=== PATIENT | female | born 1965 | race American Indian/Alaskan Native ===

== ENCOUNTER 2017-01-28 21:43 | Emergency (ER) | payer BC | END 2017-01-28 23:20 | disposition left against medical advice (07) | LOC: ED 21:43 | DX: Z53.21 Procedure and treatment not carried out due to patient leaving prior to being seen by health care provider (principal) ==

== ENCOUNTER 2018-11-21 10:22 | Emergency (ER) | payer BC ==
[2018-11-21 10:58] LABS: Basophils % (Auto) 0.6 % (0.0-1.8); Eosinophils % (Auto) 0.4 % (0.0-4.3); Hematocrit 38.3 % (30.3-42.9); Lymphocytes # (Auto) 1.3 K/mm3 (1.2-5.4); Lymphocytes % (Auto) 38.2 % (13.4-35.0); Mean Corpuscular HGB Conc 34 % (30-34); Mean Corpuscular Volume 108 fl (79-97); Monocytes # (Auto) 0.5 K/mm3 (0.0-0.8); Monocytes % (Auto) 14.3 % (0.0-7.3); Platelet Count 143 K/mm3 (140-440); Red Blood Count 3.56 M/mm3 (3.65-5.03); Red Cell Distribution Width 14.1 % (13.2-15.2)
[2018-11-21 11:18] LABS: BUN/Creatinine Ratio 7; Blood Urea Nitrogen 4 mg/dL (7-17); Calcium 8.4 mg/dL (8.4-10.2); Hemolysis Index 16
[2018-11-21] MEDS ORDERED: ZOFRAN ODT PO ONE (11:48)
--- NOTE | 2018-11-21 12:12 | Emergency Department Report ---
HPI - General Chief Complaint: Abdominal Pain Time Seen by Provider: 11/21/18 11:02 - HPI HPI: 53-year-old -[place] female presents to the emergency department with a complaint of nausea, vomiting, diarrhea and some stomach burning discomfort sinc e Saturday, 3 days ago. She has tried some Pepto-Bismol for her symptoms without any relief. She has a remote history of gastric bypass surgery in the 90s. No recent travel or sick contacts at home. She denies any fever, back pain, dysuria, vaginal bleeding or discharge. ED Past Medical Hx - Past Medical History Previous Medical History?: No Additional medical history: Gastric Bypass in 2004 - Surgical History Additional Surgical History: Gastric Bypass 2004 - Social History Smoking Status: Never Smoker Substance Use Type: Alcohol - Medications Home Medications: Home Medications Medication Instructions Recorded Confirmed Last Taken Type Ondansetron [Zofran Odt] 4 mg PO Q8HR PRN #12 tab.rapdis 11/21/18 Unknown Rx ED Review of Systems ROS: Stated complaint: STOMACH BURNING Other details as noted in HPI Comment: All other systems reviewed and negative Constitutional: denies: chills, fever Eyes: denies: eye pain, vision change ENT: denies: ear pain, throat pain Respiratory: denies: cough, shortness of breath Cardiovascular: denies: chest pain, palpitations Gastrointestinal: abdominal pain, nausea, vomiting, diarrhea Genitourinary: denies: dysuria, discharge Musculoskeletal: denies: back pain, arthralgia Skin: denies: rash, lesions Neurological: denies: headache, weakness Physical Exam - Physical Exam Vital Signs: Vital Signs 11/21/18 10:35 Temperature 98.0 F Pulse Rate 99 H Respiratory 18 Rate Blood Pressure 131/83 O2 Sat by Pulse 98 Oximetry Physical Exam: GENERAL: The patient is well-developed well-nourished. HENT: Normocephalic. Atraumatic. Patient has moist mucous membranes. EYES: Extraocular motions are intact. NECK: Supple. Trachea is midline. CHEST/LUNGS: Clear to auscultation. There is no respiratory distress noted. HEART/CARDIOVASCULAR: Regular. There is no tachycardia. There is no murmur. ABDOMEN: Abdomen is soft. Mild upper abdominal tenderness to palpation. No guarding. Patient has normal bowel sounds. There is no abdominal distention. SKIN: Skin is warm and dry. NEURO: The patient is awake, alert, and oriented. The patient is cooperative. The patient has no focal neurologic deficits. The patient has normal speech. MUSCULOSKELETAL: There is no tenderness or deformity. There is no limitation range of motion. There is no evidence of acute injury. ED Course Vital Signs 11/21/18 10:35 Temperature 98.0 F Pulse Rate 99 H Respiratory 18 Rate Blood Pressure 131/83 O2 Sat by Pulse 98 Oximetry ED Medical Decision Making - Lab Data Result diagrams: 11/21/18 10:45 11/21/18 10:45 - Radiology Data Radiology results: image reviewed interpreted by me: Abdominal x-ray shows nonspecific nonobstructive bowel gas - Medical Decision Making This patient presents to the emergency department with a complaint of some nausea, vomiting, diarrhea and some burning sensation in the abdomen. The labs have been unremarkable. Vital signs stable throughout her ED course. Abdominal x-ray shows just nonspecific nonobstructive bowel gas. Patient was given a dose of Zofran and upon reevaluation she is feeling greatly improved. She is able to pass an oral challenge. Patient has good follow-up with primary care. She has been discharged home with a prescription for Zofran ODT. She will return to the ER with any worsening of her symptoms or any acute distress. - Differential Diagnosis food poisoning, gastritis, gastroenteritis, colitis Critical Care Time: No Critical care attestation.: If time is entered above; I have spent that time in minutes in the direct care of this critically ill patient, excluding procedure time. ED Disposition Clinical Impression: Nausea & vomiting Qualifiers: Vomiting type: unspecified Vomiting Intractability: non-intractable Qualified Code(s): R11.2 - Nausea with vomiting, unspecified Diarrhea Qualifiers: Diarrhea type: unspecified type Qualified Code(s): R19.7 - Diarrhea, unspecified Abdominal pain Qualifiers: Abdominal location: generalized Qualified Code(s): R10.84 - Generalized abdominal pain Disposition: -01 TO HOME OR SELFCARE Is pt being admited?: No Condition: Stable Instructions: Acute Nausea and Vomiting (ED), Acute Diarrhea (ED), Abdominal Pain (ED) Additional Instructions: Please follow-up with your primary care physician in the next few days. Return to the emergency Department with any worsening of your symptoms or any acute distress. Prescriptions: Ondansetron [Zofran Odt] 4 mg PO Q8HR PRN #12 tab.rapdis PRN Reason: Nausea Referrals: Primary Care Provider, Your [Other] - 2-3 Days Forms: Work/School Release Form(ED) Time of Disposition: 13:42
--- NOTE | 2018-11-21 12:29 | XRay Report ---
ABDOMEN 2 VIEW(S) INDICATION / CLINICAL INFORMATION: abd pain. COMPARISON: None available. FINDINGS: TUBES / LINES: None. BOWEL GAS PATTERN/EXTRALUMINAL GAS: No significant abnormality. No free air. Surgical clips and sutur es projecting over the left upper quadrant, possibly from previous gastric bypass. ADDITIONAL FINDINGS: Calcified uterine fibroids projecting over the pelvis. IMPRESSION: 1. No acute findings. Signer Name: Pj Moe MD Signed: 11/21/2018 12:24 PM Workstation Name: [id number]
[2018-11-21] MEDS ORDERED: LIDOCAINE VISCOUS 2% PO ONE (12:35)
[2018-11-21] MEDS ORDERED: ALUM-MAG HYDROX-SIMETH 200-200-20MG/5ML PO ONE (12:35)
[2018-11-21 14:08] VITALS: BP 136/78
== END 2018-11-21 14:07 | disposition home or self-care (01) ==
LOC: ED 10:22
DX: R10.84 Generalized abdominal pain (principal); R11.2 Nausea with vomiting, unspecified; R19.7 Diarrhea, unspecified; Z98.890 Other specified postprocedural states
CPT/HCPCS: 36415; 74019; 80048; 83690; 85025; Q0162

== ENCOUNTER 2018-11-24 15:40 | Inpatient (IN) | payer BC ==
--- NOTE | 2018-11-24 16:08 | Event Note ---
ED Screening Note ED Screening Note: pt has not been able to urinate since 11/20/18 states he has suprapubic abd pain N/V/D that began 11/20/18 no hematochezia, no hematemesis states has not been able to urinate previously and was admitted to the hospital two months ago pt is not on dialysis, states he sees a kidney doctor PMHx DM, GERD, HEP B and C This initial assessment/diagnostic orders/clinical plan/treatment(s) is/are subject to change based on patients health status, clinical progression and re- assessment by fellow clinical providers in the ED. Further treatment and workup at subsequent clinical providers discretion. Patient/guardian urged not to elope from the ED as their condition may be serious if not clinically assessed and managed. Initial orders include: labs, EKG
--- NOTE | 2018-11-24 16:18 | Event Note ---
ED Screening Note ED Screening Note: presents for N/V/D that began a week ago was seen in the ED and given zofran states not feeling better states she has periumbilical abd pain described as a burning no urinary sx no PMHx no daily meds no allergies to meds non smoker +drinker This initial assessment/diagnostic orders/clinical plan/treatment(s) is/are subject to change based on patients health status, clinical progression and re- assessment by fellow clinical providers in the ED. Further treatment and workup at subsequent clinical providers discretion. Patient/guardian urged not to elope from the ED as their condition may be serious if not clinically assessed and managed. Initial orders include: labs, UA
[2018-11-24 16:49] LABS: Bilirubin,Urine NEG (Negative); Blood,Urine NEG (Negative); Color,Urine Yellow (Yellow); Hyaline Casts,Urine 1 /LPF; Mucus,Urine FEW /HPF; Protein,Urine <15 mg/dL mg/dL (Negative)
[2018-11-24 17:07] LABS: Eosinophils % (Auto) 0.5 % (0.0-4.3); Hematocrit 38.4 % (30.3-42.9); Lymphocytes # (Auto) 1.6 K/mm3 (1.2-5.4); Mean Corpuscular HGB Conc 34 % (30-34); Mean Corpuscular Volume 107 fl (79-97); Monocytes # (Auto) 0.4 K/mm3 (0.0-0.8); Monocytes % (Auto) 12.4 % (0.0-7.3); Platelet Count 132 K/mm3 (140-440); Red Blood Count 3.59 M/mm3 (3.65-5.03); Red Cell Distribution Width 13.7 % (13.2-15.2)
[2018-11-24 17:34] LABS: Alanine Aminotransferase 110 units/L (7-56); Albumin 3.2 g/dL (3.9-5); BUN/Creatinine Ratio 8; Blood Urea Nitrogen 4 mg/dL (7-17); Calcium 8.7 mg/dL (8.4-10.2); Hemolysis Index 4
[2018-11-24] MEDS ORDERED: MORPHINE IV ONE (18:32)
[2018-11-24] MEDS ORDERED: ZOFRAN IV ONE (18:32)
[2018-11-24] MEDS ORDERED: NACL 0.9% 1000 ML 1,000 ML IV ONE (18:32)
--- NOTE | 2018-11-24 20:19 | Cat Scan Report ---
CT abdomen pelvis w con INDICATION: severe abd pain,elev t.bilirubin. TECHNIQUE: All CT scans at this location are performed using the following dose modulation technique: Automated exposure control. CONTRAST: Omnipaque 300, 100 cc IV injection. COMPARISON: None available. CT abdomen: Patchy consolidation is noted at the right lung base dependently. Evaluation of the parenchymal organs demonstrates mild fatty infiltration of the liver. The remaining parenchymal organs are unremarkable. Negative for abdominal mass, fluid collection or inflammation. The bowel is not dilated or thickened. Status post previous gastric bypass. Mild gallbladder distention is noted without associated wall thi ckening or adjacent inflammation. Negative for biliary dilatation. CT PELVIS: Negative for pelvic mass, fluid or inflammation. Calcified uterine fibroids are noted. IMPRESSION: 1. Right basilar pneumonia. 2. Mild gallbladder distention. Signer Name: Fredrick Tapia MD Signed: 11/24/2018 8:15 PM Workstation Name: [id number]
[2018-11-24] MEDS ORDERED: LEVAQUIN 750MG/150ML 750 MG/150 ML BAG IV ONE (21:00)
--- NOTE | 2018-11-24 21:13 | Emergency Department Report ---
ED Abdominal Pain HPI - General Chief Complaint: Abdominal Pain Stated Complaint: DEHYDRATED/NAUSEA/VOMITING/DIARRHEA Time Seen by Provider: 11/24/18 16:05 Source: patient Mode of arrival: Ambulatory Limitations: No Limitations - History of Present Illness Initial Comments: This is a 53-year-old -[place] female who presents to the ED with right upper quadrant pain, nausea, vomiting, coughing, productive of white sputum. Symptoms have been going on intermittently for the past week, and she rates them as severe in severity. She was seen in ED for similar symptoms about a week ago, discharged with Zofran, which did not help. MD Complaint: abdominal pain -: Gradual Location: epigastric Radiation: none Migration to: periumbilical, RUQ Severity scale (0 -10): 7 Quality: cramping Consistency: intermittent Improves With: nothing Worsens With: eating, vomiting Associated Symptoms: nausea, vomiting - Related Data Previous Rx's Medication Instructions Recorded Last Taken Type Ondansetron [Zofran Odt] 4 mg PO Q8HR PRN #12 tab.rapdis 11/21/18 Unknown Rx Allergies Allergy/AdvReac Type Severity Reaction Status Date / Time No Known Allergies Allergy Verified 11/21/18 13:02 ED Review of Systems ROS: Stated complaint: DEHYDRATED/NAUSEA/VOMITING/DIARRHEA Other details as noted in HPI Comment: All other systems reviewed and negative Respiratory: cough Cardiovascular: chest pain, palpitations ED Past Medical Hx - Past Medical History Previous Medical History?: Yes Additional medical history: Gastric Bypass in 2004 - Surgical History Past Surgical History?: Yes Additional Surgical History: Gastric Bypass 2004 - Social History Smoking Status: Never Smoker Substance Use Type: Alcohol - Medications Home Medications: Home Medications Medication Instructions Recorded Confirmed Last Taken Type Ondansetron [Zofran Odt] 4 mg PO Q8HR PRN #12 tab.rapdis 11/21/18 Unknown Rx ED Physical Exam - General Limitations: No Limitations General appearance: alert - Head Head exam: Present: atraumatic, normocephalic - Eye Eye exam: Present: normal appearance - ENT ENT exam: Present: normal exam, normal orophraynx - Respiratory Respiratory exam: Present: decreased breath sounds - Cardiovascular Cardiovascular Exam: Present: regular rate, normal rhythm - GI/Abdominal GI/Abdominal exam: Present: soft ED Course Vital Signs 11/24/18 11/24/18 16:16 18:55 Temperature 99 F Pulse Rate 102 H Respiratory 18 22 Rate Blood Pressure 122/89 O2 Sat by Pulse 96 Oximetry ED Medical Decision Making - Lab Data Result diagrams: 11/24/18 16:49 11/24/18 16:49 - Medical Decision Making in er received morphine 2mg iv, zofran, ct showed right basilar pna, levaquin, iv, blood cx, admit to hosp. - Differential Diagnosis pneumonia,cholecystitis,appendicitis Critical care attestation.: If time is entered above; I have spent that time in minutes in the direct care of this critically ill patient, excluding procedure time. ED Disposition Clinical Impression: Elevated LFTs Right lower lobe pneumonia Qualifiers: Pneumonia type: aspiration pneumonia Aspiration pneumonia type: unspecified Qualified Code(s): J69.0 - Pneumonitis due to inhalation of food and vomit Disposition: OP ADMIT IP TO THIS HOSP Is pt being admited?: Yes Does the pt Need Aspirin: No Condition: Stable Instructions: Abdominal Pain (ED), Bacterial Pneumonia (ED) Referrals: ERENDIRA ARAGON MD [Primary Care Provider] - 3-5 Days
[2018-11-24] MEDS ORDERED: DILAUDID IV PRN (21:49)
[2018-11-24] MEDS ORDERED: RESTORIL PO PRN (21:50)
[2018-11-24] MEDS ORDERED: MORPHINE IV PRN (21:53)
--- NOTE | 2018-11-24 22:29 | XRay Report ---
CHEST 1 VIEW INDICATION: cough COMPARISON: None FINDINGS: Support devices: None Heart: Normal Lungs/Pleura: No acute pulmonary or pleural findings. IMPRESSION: 1. Negative study Signer Name: Aguilar Alvarado MD Signed: 11/24/2018 10:25 PM Workstation Name: [id number]
[2018-11-24] MEDS: ZOFRAN IV PRN (23:49)
[2018-11-24] MEDS ORDERED: ZOFRAN ONE (23:49)
[2018-11-24] MEDS ORDERED: MORPHINE ONE (23:50)
--- NOTE | 2018-11-25 05:34 | History and Physical Report ---
CHIEF COMPLAINT: Abdominal pain. HISTORY OF PRESENT ILLNESS: The patient is a 53-year-old female who was having abdominal pain going on for 1 week. The patient was seen in the Emergency Room because of the pain and evaluated. She described the pain as severe in nature. She was discharged home when she came in about 1 week ago with Zofran for the same symptoms, but the pain according to the patient persisted. There is no history of fever and there is no history of chills and the patient said that the pain is associated with nausea and vomiting and worse with eating. Pain is located in the periumbilical area and right upper quadrant area. The patient denies history of shortness breath but complains of cough. The patient came back to the Emergency Room and then was evaluated and had a CAT scan of abdomen and pelvis done that shows right lower lobe pneumonia. PAST MEDICAL HISTORY: Pertinent for gastric bypass surgery in the past. FAMILY HISTORY: Reviewed and noncontributory. SOCIAL HISTORY: The patient does not smoke cigarettes, drinks alcohol, and does not use illicit drugs. MEDICATIONS: The patient is on Zofran 4 mg every 8 hours as needed for nausea and vomiting. ALLERGIES: There are no known drug allergies. REVIEW OF SYSTEMS: CONSTITUTIONAL: There is no fever, no chills or diaphoresis. HEENT: There is no headache or sore throat. CARDIOVASCULAR: There is no chest pain or orthopnea. RESPIRATORY SYSTEM: There is no shortness of breath or cough. GASTROINTESTINAL SYSTEM: Abdominal pain present. Nausea and vomiting present. No diarrhea, no constipation. NEUROLOGICAL SYSTEM: There is no numbness, no dizziness, no altered mental status. MUSCULOSKELETAL SYSTEM: There is no joint pain or swelling. DERMATOLOGICAL SYSTEM: There is no skin rash or itching. GENITOURINARY SYSTEM: There is no dysuria, hematuria, or flank pain. Rest of system review is normal. PHYSICAL EXAMINATION: GENERAL: At the time of exam, the patient was found to be alert, oriented x 3 and not in acute distress. VITAL SIGNS: At the initial time of presentation show temperature of 99 degrees Fahrenheit, pulse of 102, respirations 18, blood pressure 122/89, O2 sat of 96% on room air. HEENT: Showed pupils to be equal, round, reactive to light and accommodating. Extraocular muscles are intact. NECK: Neck is supple with no JVD or carotid bruit. CARDIOVASCULAR SYSTEM: Showed normal first and second heart sounds with no gallops or murmurs. RESPIRATORY SYSTEM: Showed good air entry on both sides of the lungs with scattered crackles in the right lower lung field area. There is no use of accessory respiratory muscle. GASTROINTESTINAL SYSTEM: Shows abdomen to be full, soft, nontender with no organomegaly or rigidity. NEUROLOGIC: Shows no focal deficit. MUSCULOSKELETAL SYSTEM: Shows no joint swelling or tenderness. DERMATOLOGICAL SYSTEM: Shows no skin rash. GENITOURINARY SYSTEM: Showing no costovertebral angle tenderness. PERTINENT LABORATORY DATA AND IMAGING STUDIES: The patient had a CT of the abdomen and pelvis done with contrast that shows right basilar pneumonia. Mild gallbladder distention. Also the patient had a chest x-ray done that was unremarkable. Lab results, the patient had CBC done that has low white count of 3.6, normal hemoglobin, normal hematocrit with CBC differential showing elevated lymphocyte count of 45% with elevated monocyte count of 12.4%. The patient's chemistry show elevated bilirubin level of 0.5, with elevated liver transaminases showing high AST of 331, high ALT of 110, with high alkaline phosphatase of 444, low albumin level of 3.2. The patient's urinalysis was unremarkable. DIAGNOSES: 1. Right lower lobe pneumonia. 2. Transaminitis. PLAN OF CARE: 1. The patient will be admitted to medical floor. 2. The patient will be on IV Rocephin 1 gram daily and IV Zithromax 500 mg daily. 3. The patient will be on IV morphine 2 mg every 4 hours as needed for pain and IV Zofran 4 mg every 8 hours as needed for nausea and vomiting. 4. The patient will have liver function test done this morning, 11/25/2018, and will be on Tylenol 650 mg by mouth every 4 hours for fever and headache. 5. The patient will have hepatitis panel done to rule out hepatitis. 6. The patient's diet will be regular diet. 7. The patient will be on temazepam 15 mg at bedtime for insomnia. 8. DVT prophylaxis will be through heparin 5000 units subcutaneous q.12 hours. JOB# [id number] OCN/NTS MTDD
[2018-11-25 06:29] LABS: Albumin 3.2 g/dL (3.9-5); Bilirubin,Direct 0.8 mg/dL (0-0.2)
[2018-11-25 06:42] LABS: Hepatitis B Surface Antigen Non-Reactive (Negative); Hepatitis C Virus Antibody Non-Reactive (NonReactive)
[2018-11-25] MEDS: ZOFRAN IV PRN ×3 (08:51→22:43)
[2018-11-25] MEDS ORDERED: ZITHROMAX 500 MG in NACL 0.9% 250ML 250 ML IV SCH (10:00)
[2018-11-25] MEDS: HEPARIN SUB-Q SCH ×2 (10:38→22:33)
[2018-11-25] MEDS: ROCEPHIN/NS 1 GM/50 ML 1 GM/50 ML BAG IV SCH (10:38)
[2018-11-25] MEDS: TYLENOL PO PRN ×2 (11:02→22:43)
[2018-11-25] MEDS: NACL 0.9% 1000 ML 1,000 ML IV SCH (15:54)
--- NOTE | 2018-11-25 17:31 | Progress Note ---
Assessment and Plan - Patient Problems (1) Elevated LFTs Current Visit: Yes Status: Acute Plan to address problem: most likely secondary to to pneumonia and nausea and vomiting has started to respond to iv fluids (2) Right lower lobe pneumonia Current Visit: Yes Status: Acute Qualifiers: Pneumonia type: aspiration pneumonia Aspiration pneumonia type: unspecified Qualified Code(s): J69.0 - Pneumonitis due to inhalation of food and vomit Plan to address problem: will dc azithromycin seems to have had allergy. will keep rocphin did not have any problems seems to be resoponding to rocephin alone anyway lower fever curve and symptoms. (3) Chest pain Current Visit: No Status: Resolved Plan to address problem: secondary to pnumonia (4) Nausea & vomiting Current Visit: No Status: Acute Plan to address problem: may be secndarry to infection will start iv fluids and clear liquid diet with zofran History Interval history: pt today fels better still had problem with nausea. Family at bedside confrimed dxc of pneumonia state understands. sbo is better could not keep food down while in room pt had vominting with zithromycin. no fever Hospitalist Physical - Constitutional Vitals: Temp Pulse Resp BP Pulse Ox 98.0 F 132 H 22 147/97 98 11/25/18 16:17 11/25/18 16:17 11/25/18 16:17 11/25/18 16:17 11/25/18 16:17 General appearance: Present: no acute distress. Absent: disheveled, malodorous - EENT Eyes: Present: PERRL, EOM intact ENT: hearing intact, clear oral mucosa, dentition normal - Neck Neck: Present: supple, normal ROM - Respiratory Respiratory effort: normal Respiratory: right: diminished, rhonchi - Cardiovascular Rhythm: regular - Extremities Extremities: no ischemia, pulses intact, pulses symmetrical, No edema, normal temperature, normal color, Full ROM Peripheral Pulses: within normal limits - Abdominal General gastrointestinal: soft, non-tender, non-distended, normal bowel sounds, no hepatomegaly, no splenomegaly, no mass - Integumentary Integumentary: Present: clear, warm, dry - Psychiatric Psychiatric: appropriate mood/affect, intact judgment & insight, memory intact - Neurologic Neurologic: CNII-XII intact, no focal deficits, moves all extremities Results - Labs CBC & Chem 7: 11/24/18 16:49 11/24/18 16:49 Labs: Laboratory Last Values WBC 3.6 K/mm3 (4.5-11.0) L 11/24/18 16:49 RBC 3.59 M/mm3 (3.65-5.03) L 11/24/18 16:49 Hgb 13.0 gm/dl (10.1-14.3) 11/24/18 16:49 Hct 38.4 % (30.3-42.9) 11/24/18 16:49 MCV 107 fl (79-97) H 11/24/18 16:49 MCH 36 pg (28-32) H 11/24/18 16:49 MCHC 34 % (30-34) 11/24/18 16:49 RDW 13.7 % (13.2-15.2) 11/24/18 16:49 Plt Count 132 K/mm3 (140-440) L 11/24/18 16:49 Lymph % (Auto) 45.0 % (13.4-35.0) H 11/24/18 16:49 [place] % (Auto) 12.4 % (0.0-7.3) H 11/24/18 16:49 Eos % (Auto) 0.5 % (0.0-4.3) 11/24/18 16:49 Baso % (Auto) 1.0 % (0.0-1.8) 11/24/18 16:49 Lymph # 1.6 K/mm3 (1.2-5.4) 11/24/18 16:49 [place] # 0.4 K/mm3 (0.0-0.8) 11/24/18 16:49 Eos # 0.0 K/mm3 (0.0-0.4) 11/24/18 16:49 Baso # 0.0 K/mm3 (0.0-0.1) 11/24/18 16:49 Seg Neutrophils % 41.1 % (40.0-70.0) 11/24/18 16:49 Seg Neutrophils # 1.5 K/mm3 (1.8-7.7) L 11/24/18 16:49 Sodium 137 mmol/L (137-145) 11/24/18 16:49 Potassium 3.9 mmol/L (3.6-5.0) 11/24/18 16:49 Chloride 100.0 mmol/L (98-107) 11/24/18 16:49 Carbon Dioxide 25 mmol/L (22-30) 11/24/18 16:49 16 mmol/L 11/24/18 16:49 BUN 4 mg/dL (7-17) L 11/24/18 16:49 0.5 mg/dL (0.7-1.2) L 11/24/18 16:49 Estimated GFR > 60 ml/min 11/24/18 16:49 8 % 11/24/18 16:49 Glucose 104 mg/dL (65-100) H 11/24/18 16:49 Calcium 8.7 mg/dL (8.4-10.2) 11/24/18 16:49 1.60 mg/dL (0.1-1.2) H 11/25/18 05:13 0.8 mg/dL (0-0.2) H 11/25/18 05:13 0.8 mg/dL 11/25/18 05:13 AST 230 units/L (5-40) H 11/25/18 05:13 ALT 93 units/L (7-56) H 11/25/18 05:13 395 units/L (35-129) H 11/25/18 05:13 6.5 g/dL (6.3-8.2) 11/25/18 05:13 3.2 g/dL (3.9-5) L 11/25/18 05:13 1.0 % 11/25/18 05:13 11 units/L (13-60) L 11/24/18 16:49 Yellow (Yellow) 11/24/18 16:35 Clear (Clear) 11/24/18 16:35 5.0 (5.0-7.0) 11/24/18 16:35 Ur Specific [place] 1.011 (1.003-1.030) 11/24/18 16:35 <15 mg/dl mg/dL (Negative) 11/24/18 16:35 Neg mg/dL (Negative) 11/24/18 16:35 Neg mg/dL (Negative) 11/24/18 16:35 Neg (Negative) 11/24/18 16:35 Neg (Negative) 11/24/18 16:35 Neg (Negative) 11/24/18 16:35 2.0 mg/dL (<2.0) 11/24/18 16:35 Ur Leukocyte Esterase Neg (Negative) 11/24/18 16:35 1.0 /HPF (0.0-6.0) 11/24/18 16:35 3.0 /HPF (0.0-6.0) 11/24/18 16:35 U Epithel Cells (Auto) 1.0 /HPF (0-13.0) 11/24/18 16:35 Hyaline Casts 1 /LPF 11/24/18 16:35 Few /HPF 11/24/18 16:35 Hepatitis A IgM Ab Non-reactive (NonReactive) 11/25/18 05:13 Hep Bs Antigen Non-reactive (Negative) 11/25/18 05:13 Hep B Core IgM Ab Non-reactive (NonReactive) 11/25/18 05:13 Non-reactive (NonReactive) 11/25/18 05:13 - Imaging and Cardiology Chest x-ray: image reviewed Active Medications - Current Medications Current Medications: Generic Name Dose Route Start Last Admin Trade Name Freq PRN Reason Stop Dose Admin Acetaminophen 650 mg 11/24/18 21:50 11/25/18 11:02 Tylenol PO 650 mg Q4H PRN Administration Pain, Mild (1-3) Heparin Sodium (Porcine) 5,000 unit 11/25/18 10:00 11/25/18 10:38 Heparin SUB-Q 5,000 unit Q12HR OWEN Administration Ceftriaxone Sodium 1 gm in 50 mls @ 100 mls/hr 11/25/18 10:00 11/25/18 10:38 Rocephin/Ns 1 Gm/50 Ml IV 100 mls/hr Q24HR OWEN Administration Protocol Sodium Chloride 1,000 mls @ 100 mls/hr 11/25/18 15:00 11/25/18 15:54 Nacl 0.9% 1000 Ml IV 100 mls/hr DIRECT OWEN Administration Morphine Sulfate 2 mg 11/24/18 21:53 11/24/18 23:49 Morphine IV 2 mg Q4H PRN Administration Pain, Moderate (4-6) Ondansetron HCl 4 mg 11/25/18 14:00 11/25/18 15:54 Zofran IV 4 mg Q6H PRN Administration Nausea And Vomiting Temazepam 15 mg 11/24/18 21:50 Restoril PO QHS PRN Sleep Nutrition/Malnutrition Assess - Dietary Evaluation Nutrition/Malnutrition Findings: Nutrition Notes Start: 11/25/18 14:45 Freq: Status: Active Protocol: Document 11/25/18 14:52 RM (Rec: 11/25/18 15:06 RM [id number]) Nutrition Notes Need for Assessment generated from: MST Initial or Follow up Assessment Other Pertinent Diagnosis Abdominal pain X 1 week, Hx gastric bypass, R lower lobe pneu Current Diet Clear liquid Labs/Tests Reviewed Pertinent Medications Reviewed Height 5 ft 8 in Weight 61 kg Usual Body Weight 63.64 kg [place] Body Weight (kg) 63.63 BMI 20.4 Weight change and time frame 4.15% wt loss X 3 months Subjective/Other Information Screened for malnutrition. Regular diet in place earlier today. Clear liquid diet ordered later today. Pt stated that [employer] her appetite was poor and that she has not eaten anything since . Stated that she normally she eats 2 meals daily. Stated that her appetite is poor now and that she has only been drinking liquids d/t gagging and fear of vomiting solid food. Stated UBW was 140 lbs a few months ago. Noted slight temporal wasting. Burn Absent Trauma Absent Minimum of two criteria Yes Energy Intake (severe) < or equal to 50% Estimated Energy Requirement > or equal to 5 days Muscle Mass Mild Depletion (non-severe) #1 Nutrition Diagnosis Malnutrition Etiology abdominal pain As Evidenced by Signs and Symptoms temporal wasting, pt statement that she has not eaten anything since Is patient on ventilator? No Is Patient Ambulatory and/or Out of Bed Yes REE-([place]-ambulatory/OOB) [ 1636.050 NUTR.MSJOOB] Calculation Used for Recommendations [facility] Additional Notes Protein Needs: 73-92g (1.2-1. 5g/kg) Fluid Needs: 1 ml/kcal Nutrition Intervention Change Diet Order: Advance diet when medically able Add Supplement/Snack (indicate name/kcal Ensure Clear 1 daily /protein ) Provides kCal: 240 Provides Protein (gm) 8 Goal #1 Diet advancement Anticipated Discharge Needs: Unable to determine at this time Follow-Up By: 11/27/18 Additional Comments Follow for PO and ONS intakes
[2018-11-26] MEDS: NACL 0.9% 1000 ML 1,000 ML IV SCH ×3 (00:52→18:56)
[2018-11-26 08:28] LABS: Basophils % (Auto) 0.5 % (0.0-1.8); Eosinophils % (Auto) 0.1 % (0.0-4.3); Hematocrit 34.7 % (30.3-42.9); Lymphocytes # (Auto) 0.9 K/mm3 (1.2-5.4); Mean Corpuscular HGB Conc 35 % (30-34); Mean Corpuscular Volume 106 fl (79-97); Monocytes # (Auto) 0.4 K/mm3 (0.0-0.8); Monocytes % (Auto) 13.3 % (0.0-7.3); Platelet Count 100 K/mm3 (140-440); Red Blood Count 3.27 M/mm3 (3.65-5.03); Red Cell Distribution Width 13.6 % (13.2-15.2)
[2018-11-26 08:43] LABS: BUN/Creatinine Ratio 4; Blood Urea Nitrogen 2 mg/dL (7-17); Calcium 8.6 mg/dL (8.4-10.2); Hemolysis Index 15
[2018-11-26] MEDS: ROCEPHIN/NS 1 GM/50 ML 1 GM/50 ML BAG IV SCH (10:10)
[2018-11-26] MEDS: HEPARIN SUB-Q SCH ×2 (10:11→22:36)
--- NOTE | 2018-11-26 18:31 | Progress Note ---
Assessment and Plan - Patient Problems (1) Elevated LFTs Current Visit: Yes Status: Acute Plan to address problem: Patient LFTs are resolving. Down trending. Could've been secondary to previous retained stone. Mild gallbladder elevation. We'll follow-up LFTs on outpatient. (2) Right lower lobe pneumonia Current Visit: Yes Status: Acute Qualifiers: Pneumonia type: aspiration pneumonia Aspiration pneumonia type: unspecified Qualified Code(s): J69.0 - Pneumonitis due to inhalation of food and vomit Plan to address problem: will dc azithromycin seems to have had allergy. will keep rocphin did not have any problems seems to be resoponding to rocephin alone anyway lower fever curve and symptoms. (3) Chest pain Current Visit: No Status: Resolved Plan to address problem: No further evidence of chest pain or abdominal pain. Was secondary to pneumonia. Patient feels much better workup negative. (4) Nausea & vomiting Current Visit: No Status: Acute Plan to address problem: may be secndarry to infection will start iv fluids and clear liquid diet with zofran (5) Moderate protein malnutrition Current Visit: Yes Status: Acute Plan to address problem: Patient appears to have moderate protein deficiency malnutrition. Patient has had a decrease by mouth intake for some time several weeks. Most likely secondary to her pneumonia. And abdominal pain. May have been mild gallbladder obstruction as well. Patient has no evidence of sepsis at all. Despite leukopenia History Interval history: Patient feels much better today. Able to keep food down. Patient's no vomiting states she is hungry stable to advance diet. No fever no leukocytosis patient's energy has improved and is stronger. Anticipating discharge in a.m. Hospitalist Physical - Constitutional Vitals: Temp Pulse Resp BP Pulse Ox 99.0 F 75 20 126/78 99 11/26/18 16:50 11/26/18 16:50 11/26/18 16:50 11/26/18 16:50 11/26/18 16:50 General appearance: Present: no acute distress. Absent: disheveled, malodorous - EENT Eyes: Present: PERRL, EOM intact ENT: hearing intact, clear oral mucosa, dentition normal - Neck Neck: Present: supple, normal ROM - Respiratory Respiratory effort: normal Respiratory: right: rales, rhonchi - Cardiovascular Rhythm: regular - Extremities Extremities: no ischemia, pulses intact, pulses symmetrical, No edema, normal temperature, normal color Peripheral Pulses: within normal limits - Abdominal General gastrointestinal: soft, non-tender, non-distended, normal bowel sounds, no distended, no rigid - Integumentary Integumentary: Present: clear, warm, dry - Psychiatric Psychiatric: appropriate mood/affect, intact judgment & insight, memory intact - Neurologic Neurologic: CNII-XII intact, focal deficits, moves all extremities Results - Labs CBC & Chem 7: 11/26/18 07:53 11/26/18 07:53 Labs: Laboratory Last Values WBC 2.8 K/mm3 (4.5-11.0) L 11/26/18 07:53 RBC 3.27 M/mm3 (3.65-5.03) L 11/26/18 07:53 Hgb 12.0 gm/dl (10.1-14.3) 11/26/18 07:53 Hct 34.7 % (30.3-42.9) 11/26/18 07:53 MCV 106 fl (79-97) H 11/26/18 07:53 MCH 37 pg (28-32) H 11/26/18 07:53 MCHC 35 % (30-34) H 11/26/18 07:53 RDW 13.6 % (13.2-15.2) 11/26/18 07:53 Plt Count 100 K/mm3 (140-440) L 11/26/18 07:53 Lymph % (Auto) 32.0 % (13.4-35.0) 11/26/18 07:53 [place] % (Auto) 13.3 % (0.0-7.3) H 11/26/18 07:53 Eos % (Auto) 0.1 % (0.0-4.3) 11/26/18 07:53 Baso % (Auto) 0.5 % (0.0-1.8) 11/26/18 07:53 Lymph # 0.9 K/mm3 (1.2-5.4) L 11/26/18 07:53 [place] # 0.4 K/mm3 (0.0-0.8) 11/26/18 07:53 Eos # 0.0 K/mm3 (0.0-0.4) 11/26/18 07:53 Baso # 0.0 K/mm3 (0.0-0.1) 11/26/18 07:53 Seg Neutrophils % 54.1 % (40.0-70.0) 11/26/18 07:53 Seg Neutrophils # 1.5 K/mm3 (1.8-7.7) L 11/26/18 07:53 Sodium 140 mmol/L (137-145) 11/26/18 07:53 Potassium 3.5 mmol/L (3.6-5.0) L 11/26/18 07:53 Chloride 104.1 mmol/L (98-107) 11/26/18 07:53 Carbon Dioxide 27 mmol/L (22-30) 11/26/18 07:53 12 mmol/L 11/26/18 07:53 BUN 2 mg/dL (7-17) L 11/26/18 07:53 0.5 mg/dL (0.7-1.2) L 11/26/18 07:53 Estimated GFR > 60 ml/min 11/26/18 07:53 4 % 11/26/18 07:53 Glucose 77 mg/dL (65-100) 11/26/18 07:53 Calcium 8.6 mg/dL (8.4-10.2) 11/26/18 07:53 1.60 mg/dL (0.1-1.2) H 11/25/18 05:13 0.8 mg/dL (0-0.2) H 11/25/18 05:13 0.8 mg/dL 11/25/18 05:13 AST 230 units/L (5-40) H 11/25/18 05:13 ALT 93 units/L (7-56) H 11/25/18 05:13 395 units/L (35-129) H 11/25/18 05:13 6.5 g/dL (6.3-8.2) 11/25/18 05:13 3.2 g/dL (3.9-5) L 11/25/18 05:13 1.0 % 11/25/18 05:13 11 units/L (13-60) L 11/24/18 16:49 Yellow (Yellow) 11/24/18 16:35 Clear (Clear) 11/24/18 16:35 5.0 (5.0-7.0) 11/24/18 16:35 Ur Specific [place] 1.011 (1.003-1.030) 11/24/18 16:35 <15 mg/dl mg/dL (Negative) 11/24/18 16:35 Neg mg/dL (Negative) 11/24/18 16:35 Neg mg/dL (Negative) 11/24/18 16:35 Neg (Negative) 11/24/18 16:35 Neg (Negative) 11/24/18 16:35 Neg (Negative) 11/24/18 16:35 2.0 mg/dL (<2.0) 11/24/18 16:35 Ur Leukocyte Esterase Neg (Negative) 11/24/18 16:35 1.0 /HPF (0.0-6.0) 11/24/18 16:35 3.0 /HPF (0.0-6.0) 11/24/18 16:35 U Epithel Cells (Auto) 1.0 /HPF (0-13.0) 11/24/18 16:35 Hyaline Casts 1 /LPF 11/24/18 16:35 Few /HPF 11/24/18 16:35 Hepatitis A IgM Ab Non-reactive (NonReactive) 11/25/18 05:13 Hep Bs Antigen Non-reactive (Negative) 11/25/18 05:13 Hep B Core IgM Ab Non-reactive (NonReactive) 11/25/18 05:13 Non-reactive (NonReactive) 11/25/18 05:13 Active Medications - Current Medications Current Medications: Generic Name Dose Route Start Last Admin Trade Name Frieda PRN Reason Stop Dose Admin Acetaminophen 650 mg 11/24/18 21:50 11/25/18 22:43 Tylenol PO 650 mg Q4H PRN Administration Pain, Mild (1-3) Heparin Sodium (Porcine) 5,000 unit 11/25/18 10:00 11/26/18 10:11 Heparin SUB-Q 5,000 unit Q12HR OWEN Administration Ceftriaxone Sodium 1 gm in 50 mls @ 100 mls/hr 11/25/18 10:00 11/26/18 10:10 Rocephin/Ns 1 Gm/50 Ml IV 100 mls/hr Q24HR OWEN Administration Protocol Sodium Chloride 1,000 mls @ 100 mls/hr 11/25/18 15:00 11/26/18 10:21 Nacl 0.9% 1000 Ml IV 100 mls/hr DIRECT OWEN Administration Morphine Sulfate 2 mg 11/24/18 21:53 11/24/18 23:49 Morphine IV 2 mg Q4H PRN Administration Pain, Moderate (4-6) Ondansetron HCl 4 mg 11/25/18 14:00 11/25/18 22:43 Zofran IV 4 mg Q6H PRN Administration Nausea And Vomiting Temazepam 15 mg 11/24/18 21:50 Restoril PO QHS PRN Sleep Nutrition/Malnutrition Assess - Dietary Evaluation Nutrition/Malnutrition Findings: Nutrition Notes Start: 11/25/18 14:45 Freq: Status: Active Protocol: Document 11/25/18 14:52 RM (Rec: 11/25/18 15:06 RM [id number]) Nutrition Notes Need for Assessment generated from: MST Initial or Follow up Assessment Other Pertinent Diagnosis Abdominal pain X 1 week, Hx gastric bypass, R lower lobe pneu Current Diet Clear liquid Labs/Tests Reviewed Pertinent Medications Reviewed Height 5 ft 8 in Weight 61 kg Usual Body Weight 63.64 kg [place] Body Weight (kg) 63.63 BMI 20.4 Weight change and time frame 4.15% wt loss X 3 months Subjective/Other Information Screened for malnutrition. Regular diet in place earlier today. Clear liquid diet ordered later today. Pt stated that [employer] her appetite was poor and that she has not eaten anything since . Stated that she normally she eats 2 meals daily. Stated that her appetite is poor now and that she has only been drinking liquids d/t gagging and fear of vomiting solid food. Stated UBW was 140 lbs a few months ago. Noted slight temporal wasting. Burn Absent Trauma Absent Minimum of two criteria Yes Energy Intake (severe) < or equal to 50% Estimated Energy Requirement > or equal to 5 days Muscle Mass Mild Depletion (non-severe) #1 Nutrition Diagnosis Malnutrition Etiology abdominal pain As Evidenced by Signs and Symptoms temporal wasting, pt statement that she has not eaten anything since Is patient on ventilator? No Is Patient Ambulatory and/or Out of Bed Yes REE-([facility]-ambulatory/OOB) [ 1636.050 NUTR.MSJOOB] Calculation Used for Recommendations [facility] Additional Notes Protein Needs: 73-92g (1.2-1. 5g/kg) Fluid Needs: 1 ml/kcal Nutrition Intervention Change Diet Order: Advance diet when medically able Add Supplement/Snack (indicate name/kcal Ensure Clear 1 daily /protein ) Provides kCal: 240 Provides Protein (gm) 8 Goal #1 Diet advancement Anticipated Discharge Needs: Unable to determine at this time Follow-Up By: 11/27/18 Additional Comments Follow for PO and ONS intakes
[2018-11-27] MEDS: NACL 0.9% 1000 ML 1,000 ML IV SCH (04:26)
[2018-11-27 06:05] VITALS: BP 130/86
--- NOTE | 2018-11-27 12:02 | Discharge Summary ---
Providers - Providers Date of Admission: 11/24/18 21:17 Date of discharge: 11/27/18 Attending physician: MARIE VEE Primary care physician: ERENDIRA ARAGON Hospitalization Condition: Good Disposition: DC-01 TO HOME OR SELFCARE - Discharge Diagnoses (1) Elevated LFTs Status: Resolved (2) Right lower lobe pneumonia Status: Acute Qualifiers: Pneumonia type: aspiration pneumonia Aspiration pneumonia type: unspecified Qualified Code(s): J69.0 - Pneumonitis due to inhalation of food and vomit Comment: Patient defervesced well. Fever curve went down. Leukocytosis resolved. Patient became much stronger felt better clinically improved. No shortness of breath. 8. Get walk around. He changed to by mouth antibiotics. Blood cultures negative. (3) Chest pain Status: Resolved Comment: Chest pain is pleuritic secondary to pneumonia. (4) Nausea & vomiting Status: Resolved (5) Moderate protein malnutrition Status: Acute Comment: Secondary to eating when patient had pneumonia. Improve nutrition. Core Measure Documentation - Palliative Care Palliative Care/ Comfort Measures: Not Applicable - Core Measures Any of the following diagnoses?: none Exam - Constitutional Vitals: Temp Pulse Resp BP Pulse Ox 98.6 F 78 20 130/86 98 11/27/18 06:02 11/27/18 06:02 11/27/18 06:02 11/27/18 06:02 11/27/18 06:02 General appearance: Present: no acute distress, well-nourished - EENT Eyes: Present: PERRL ENT: hearing intact, clear oral mucosa - Neck Neck: Present: supple, normal ROM - Respiratory Respiratory effort: normal Respiratory: right: rhonchi (few), bilateral: CTA - Cardiovascular Heart Sounds: Present: S1 & S2. Absent: rub, click - Extremities Extremities: pulses symmetrical, No edema Peripheral Pulses: within normal limits - Abdominal General gastrointestinal: Present: soft, non-tender, non-distended, normal bowel sounds Female genitourinary: Present: normal - Integumentary Integumentary: Present: clear, warm, dry - Musculoskeletal Musculoskeletal: gait normal, strength equal bilaterally - Psychiatric Psychiatric: appropriate mood/affect, intact judgment & insight - Neurologic Neurologic: CNII-XII intact, moves all extremities Plan Activity: no restrictions, other (work on sat after folow up office) Diet: low cholesterol Follow up with: ERENDIRA ARAGON MD [Primary Care Provider] - 3-5 Days
[2018-11-27] MEDS: ROCEPHIN/NS 1 GM/50 ML 1 GM/50 ML BAG IV SCH (12:42)
[2018-11-27] MEDS: HEPARIN SUB-Q SCH (12:45)
[2018-11-27 13:12] LABS: Hematocrit 33.3 % (30.3-42.9); Hemoglobin 11.4 gm/dl (10.1-14.3); Mean Corpuscular HGB Conc 34 % (30-34); Mean Corpuscular Volume 107 fl (79-97); Red Blood Count 3.11 M/mm3 (3.65-5.03); Red Cell Distribution Width 13.6 % (13.2-15.2)
[2018-11-27 13:17] LABS: Platelet Count 93 K/mm3 (140-440)
[2018-11-27 13:31] LABS: Alanine Aminotransferase 62 units/L (7-56); Albumin 2.7 g/dL (3.9-5); BUN/Creatinine Ratio 2; Blood Urea Nitrogen < 1 mg/dL (7-17); Calcium 8.3 mg/dL (8.4-10.2); Hemolysis Index 6
--- NOTE | 2018-11-27 13:59 | XRay Report ---
CHEST 1 VIEW INDICATION: Shortness of breath. COMPARISON: 11/24/2018 FINDINGS: Support devices: None. Heart: Within normal limits. Lungs/Pleura: No acute air space or interstitial disease. Additional findings: None. IMPRESSION: No acute findings. Signer Name: Yuan Paredes Jr, MD Signed: 11/27/2018 1:55 PM Workstation Name: [id number]
[2018-11-27 14:02] LABS: Basophils % (Manual) 0 % (0.0-1.8); Total Cells Counted 100
[2018-11-27 14:03] LABS: Platelet Estimate Consistent w Auto; RBC Morphology Normal
== END 2018-11-27 15:53 | disposition home or self-care (01) | DRG 178 ==
LOC: ED 15:40 → 3A 21:17
PROVIDERS: ADMIT Internal Medicine; ATTEND Internal Medicine
DX: J69.0 Pneumonitis due to inhalation of food and vomit (principal); E44.0 Moderate protein-calorie malnutrition; R79.89 Other specified abnormal findings of blood chemistry; Z68.21 Body mass index [BMI] 21.0-21.9, adult
CPT/HCPCS: 36415; 71045; 74177; 80048; 80053; 80074; 80076; 81001; 83690; 85007; 85025; 87040; 96361; 96374; 96375; G0378; J0456; J0696; J1644; J1956; J2270; J2405; J7030; J7050; Q9967

== ENCOUNTER 2018-12-17 08:21 | Outpatient (CLI) | payer BC ==
[2018-12-17 10:02] LABS: Alanine Aminotransferase 18 units/L (7-56); Albumin 3.3 g/dL (3.9-5); BUN/Creatinine Ratio 18; Blood Urea Nitrogen 7 mg/dL (7-17); Hemolysis Index 2
[2018-12-17 10:12] LABS: INR 1.07 (0.87-1.13)
[2018-12-17 13:33] LABS: Chol/HDL Ratio 2.13 %
[2018-12-20 11:21] LABS: Vitamin D, 25-OH, D2 <4 ng/mL
== END 2018-12-17 08:22 | disposition home or self-care (01) ==
LOC: LAB 08:21
PROVIDERS: ATTEND Internal Medicine
DX: Z13.21 Encounter for screening for nutritional disorder (principal); Z13.220 Encounter for screening for lipoid disorders; R14.0 Abdominal distension (gaseous)
CPT/HCPCS: 36415; 80053; 80061; 82306; 82607; 83036; 83516; 84443; 85610; 85730; 86038

== ENCOUNTER 2019-06-19 11:36 | Outpatient (CLI) | payer BC ==
--- NOTE | 2019-06-19 12:34 | XRay Report ---
CHEST 2 VIEWS / XR chest routine 2V INDICATION / CLINICAL INFORMATION: COUGH. COMPARISON: 11/27/2018 CXR. FINDINGS: PA and lateral chest radiographs demonstrate normal cardiomediastinal silhouette. Clear deisy gs without pleural effusions or CHF. Stable bones. Unchanged left upper quadrant surgical clips. IMPRESSION: No acute chest process, as described. Thank you for the opportunity to participate in this patient's care. Signer Name: Robinson Perdue Signed: 06/19/2019 12:30 PM Workstation Name: [id number]
== END 2019-06-19 11:37 | disposition home or self-care (01) ==
LOC: XRAY 11:36
PROVIDERS: ATTEND Internal Medicine
DX: R05 Cough (principal)
CPT/HCPCS: 71046